=== PATIENT | female | born 1995 | race Two or more races ===

== ENCOUNTER 2018-06-20 15:32 | Emergency (ER) | payer OTHER ==
[2018-06-20 16:30] VITALS: BP 126/89
--- NOTE | 2018-06-20 16:41 | UC ---
Skin Complaint HPI - HPI Summary HPI Summary: Pt presents with c/o of "spot" on right elbow that has been there for several months maybe even 1 year. Pt has been applying OTC wart medication with no improvement. - History of Current Complaint Chief Complaint: UCSkin Time Seen by Provider: 06/20/18 16:35 Stated Complaint: SKIN CONCERN Hx Obtained From: Patient Hx Last Menstrual Period: 06/02/18 ?: No Onset/Duration: Gradual Onset, Lasting Weeks, Still Present Skin Exposure Onset/Duration: Weeks Ago - months Timing: Constant Onset Severity: Mild Current Severity: Mild Pain Intensity: 0 Location: Discrete - right elbow Character: Raised Aggravating Factor(s): Nothing Alleviating Factor(s): Nothing Associated Signs & Symptoms: Positive: Negative - Allergy/Home Medications Allergies/Adverse Reactions: Allergies Allergy/AdvReac Type Severity Reaction Status Date / Time No Known Allergies Allergy Verified 06/20/18 16:24 Home Medications: Home Medications Multivitamins/Minerals TAB* [Theragran/minerals TAB*] 1 tab PO DAILY 06/20/18 [ History Confirmed 06/20/18] PMH/Surg Hx/FS Hx/Imm Hx Previously Healthy: Yes - Surgical History Surgical History: None - Family History Known Family History: Positive: Cardiac Disease - Social History Occupation: Student Lives: Dormitory/Roommates Alcohol Use: Occasionally Substance Use Type: None Smoking Status (MU): Never Smoked Tobacco Have You Smoked in the Last Year: No - Immunization History Vaccination Up to Date: Yes Review of Systems All Other Systems Reviewed And Are Negative: Yes Constitutional: Positive: Negative Skin: Positive: Other - wart right elbow Eyes: Positive: Negative ENT: Positive: Negative Respiratory: Positive: Negative Cardiovascular: Positive: Negative Gastrointestinal: Positive: Negative Genitourinary: Positive: Negative Motor: Positive: Negative Neurovascular: Positive: Negative Musculoskeletal: Positive: Negative Neurological: Positive: Negative Psychological: Positive: Negative Is Patient Immunocompromised?: No Physical Exam Triage Information Reviewed: Yes Appearance: Well-Appearing Vital Signs: Initial Vital Signs Temp 98.4 F 06/20/18 16:25 Pulse 68 06/20/18 16:25 Resp 13 06/20/18 16:25 BP 126/89 06/20/18 16:25 Pulse Ox 99 06/20/18 16:25 Vital Signs Reviewed: Yes Eye Exam: Normal ENT Exam: Normal Dental Exam: Normal Neck exam: Normal Respiratory: Positive: No respiratory distress Musculoskeletal Exam: Normal Neurological Exam: Normal Psychological Exam: Normal Skin Exam: Other - right posterior elbow, dime size wart, Course/Dx - Differential Diagnoses - Skin Complaint Differential Diagnoses: Other - wart - Diagnoses Provider Diagnosis: Common wart Discharge - Sign-Out/Discharge Documenting (check all that apply): Patient Departure All imaging exams completed and their final reports reviewed: No Studies - Discharge Plan Condition: Stable Disposition: HOME Patient Education Materials: Common Wart (ED) Referrals: [facility] [place]] - If Needed Harriet Cheung MD [Medical Doctor] - No Primary Care Phys,NOPCP [Primary Care Provider] - - Billing Disposition and Condition Condition: STABLE Disposition: Home
== END 2018-06-20 16:46 | disposition home or self-care (01) ==
LOC: UCCORT 15:32
DX: B07.8 Other viral warts (principal)
CPT/HCPCS: 99201; G0463